=== PATIENT | female | born 1930 | race Caucasian/White ===

== ENCOUNTER 2017-10-27 16:57 | Emergency (ER) | payer MEDICARE, OTHER ==
--- NOTE | 2017-10-27 17:25 | UC ---
Respiratory Complaint HPI - HPI Summary HPI Summary: Started with a cough last night. Chest pressure not like cardiac pain, with cough productive of sputum. Oxygen sat 97-99 %. Was feeling weak, much better after nebulizer treatment. - History of Current Complaint Stated Complaint: SOB,DIZZINESS Time Seen by Provider: 10/27/17 17:08 Hx Obtained From: Patient, Family/Principal Statistical Programmer Onset/Duration: Sudden Onset, Lasting Days - 1, Still Present Timing: Constant Severity Initially: Mild Severity Currently: Moderate Character: Cough: Productive Alleviating Factors: Bronchodilator - Nebulizer with duoneb Associated Signs And Symptoms: Positive: Dyspnea, Edema, URI - Risk Factors Pulmonary Embolism Risk Factors: Smoking Cardiac Risk Factors: Smoking - Allergies/Home Medications Allergies/Adverse Reactions: Allergies Allergy/AdvReac Type Severity Reaction Status Date / Time No Known Allergies Allergy Verified 10/27/17 17:23 Home Medications: Home Medications ALPRAZolam TAB* [Xanax TAB*] 0.25 mg PO BID PRN 10/27/17 [History Confirmed ] Acetaminophen [Tylenol Arthritis] 650 mg PO QID PRN 10/27/17 [History Confirmed 10/27/17] Albuterol HFA INHALER* [Ventolin HFA Inhaler*] 2 puff INH QID 10/27/17 [History Confirmed 10/27/17] Albuterol/Ipratropium NEB.JAVIER* [Duoneb (Albuterol 2.5 MG/Ipratropium 0.5 MG)] 1 neb INH Q4H PRN 10/27/17 [History Confirmed 10/27/17] Amiodarone TAB* [Cordarone Tab*] 200 mg PO BID 10/27/17 [History Confirmed 10/27] Aspirin [Aspirin EC] 81 mg PO DAILY 10/27/17 [History Confirmed 10/27/17] Atorvastatin* [Lipitor 10 MG*] 10 mg PO DAILY 10/27/17 [History Confirmed ] Cyanocobalamin TAB* [Vitamin B12 TAB*] 1,000 mcg PO DAILY 10/27/17 [History Confirmed 10/27/17] Ferrous Fumarate 29 mg PO BID 10/27/17 [History Confirmed 10/27/17] Insulin Aspart [Novolog Flexpen] 5 unit SC TID 10/27/17 [History Confirmed 10/27] Insulin Detemir (NF) [Levemir (NF)] 14 unit SUBCUT DAILY 10/27/17 [History Confirmed 10/27/17] Levothyroxine TAB* [Synthroid 125 MCG TAB*] 125 mcg PO DAILY 10/27/17 [History Confirmed 10/27/17] Metoprolol Succinate [Toprol Xl] 50 mg PO DAILY 10/27/17 [History Confirmed ] Multivitamins/Minerals TAB* [Theragran/minerals TAB*] 1 tab PO DAILY 10/27/17 [ History Confirmed 10/27/17] Polyethylene Glycol 3350* [Miralax*] 17 gm PO DAILY PRN 10/27/17 [History Confirmed 10/27/17] Potassium Chlor TAB* [Klor Con ER TAB 10 MEQ*] 20 meq DAILY 10/27/17 [History Confirmed 10/27/17] Torsemide TAB* [Demadex 20 MG*] 40 mg PO DAILY 10/27/17 [History Confirmed 10/27] PMH/Surg Hx/FS Hx/Imm Hx Endocrine History: Hypothyroidism Cardiovascular History: Cardiac Disease, Pacemaker/ICD Respiratory History: COPD Psychological History: Anxiety - Family History Known Family History: Positive: Cardiac Disease, Hypertension, Diabetes - Social History Occupation: Retired Lives: With Family Substance Use Type: None Smoking Status (MU): Former Smoker Review of Systems Respiratory: Shortness Of Breath, Cough Cardiovascular: Chest Pain - pressure with breathing. Is Patient Immunocompromised?: No All Other Systems Reviewed And Are Negative: Yes Physical Exam Triage Information Reviewed: Yes Appearance: No Pain Distress, Well-Nourished, Ill-Appearing Vital Signs Reviewed: Yes Eyes: Positive: Conjunctiva Clear ENT: Positive: Pharynx normal, TMs normal Neck: Positive: Supple, No Lymphadenopathy Respiratory: Positive: Decreased breath sounds. Negative: Wheezing Cardiovascular: Positive: RRR, Murmur:Sys:Grade _?_/ - 2/6 Musculoskeletal: Positive: Edema @ - bilateral pretibial Neurological Exam: Normal Psychological Exam: Normal Skin Exam: Normal Respiratory Course/Dx - Differential Dx/Diagnosis Differential Diagnosis/HQI/PQRI: Asthma, Exacerbation Of COPD, Laryngitis, Lower Resp Infection Provider Diagnoses: COPD with acute exacerbation Discharge - Sign-Out/Discharge Documenting (check all that apply): Discharge/Admit/Transfer - Discharge Plan Condition: Stable Disposition: HOME Prescriptions: predniSONE TAB* [Deltasone TAB*] 20 mg PO DAILY #18 tab Sulfamethox/Trimethoprim DS* [Bactrim DS 800/160 TAB*] 1 tab PO BID #14 tab Patient Education Materials: COPD (Chronic Obstructive Pulmonary Disease) (ED) , Prednisone (By mouth), Sulfamethoxazole/Trimethoprim (By mouth) Referrals: Helena Ball MD [Medical Doctor] - - Billing Disposition and Condition Condition: STABLE Disposition: HOME
[2017-10-27 17:32] VITALS: BP 120/37
--- NOTE | 2017-10-27 17:57 | RAD ---
HISTORY: COPD exacerbation. COMPARISONS: None VIEWS: 4: Frontal dual-energy and lateral views of the chest. FINDINGS: CARDIOMEDIASTINAL SILHOUETTE: The cardiac silhouette is mildly enlarged. A prosthetic heart valve is noted. The cardiomediastinal silhouette is otherwise normal. KAMARI: The kamari are normal. PLEURA: There is blunting of the right costophrenic angle. LUNG PARENCHYMA: There is hyperinflation with flattening of the diaphragm and expansion of the AP diameter of the chest. There is diffuse coarse reticular pattern of opacification. ABDOMEN: The upper abdomen is clear. There is no subphrenic gas. BONES AND SOFT TISSUES: Degenerative changes noted of the spine. OTHER: A left-sided pacemaker is noted. IMPRESSION: 1. COPD WITH MILD FIBROTIC CHANGES. 2. MILD CARDIOMEGALY. 3. SMALL RIGHT PLEURAL EFFUSION VERSUS CHRONIC PLEURAL THICKENING.
[2017-10-27] MEDS ORDERED: predniSONE TAB* 20 MG PO ONE (18:07)
[2017-10-27] MEDS ORDERED: Sulfamethox/Trimethoprim DS 800/160* TAB PO ONE (18:07)
== END 2017-10-27 18:30 | disposition home or self-care (01) ==
LOC: UCCORT 16:57
DX: J44.1 Chronic obstructive pulmonary disease with (acute) exacerbation (principal); I51.7 Cardiomegaly; Z95.2 Presence of prosthetic heart valve; I51.9 Heart disease, unspecified; Z87.891 Personal history of nicotine dependence; E03.9 Hypothyroidism, unspecified
CPT/HCPCS: 71046; 93005; 99202; A9270-GY; G0463; J7512